=== PATIENT | female | born 1955 | race Caucasian/White ===

== ENCOUNTER → 2017-01-23 | Outpatient (CLI) | payer MEDICAID ==
[~2017-01-23] VITALS: Ht 328.9 cm; Wt 90.0 kg
[~2017-01-23] MED LIST: ATIVAN 1MG T1 MG/TAB PO; COMBIVENT INH14.7 GM IH; DESYREL 50MG50 MG PO; FLEXERIL5 MG PO; LEVAQUIN 5500 MG/TA1 PO; LEVAQUIN 750MG750 M1 PO; LEVOXYL0.025 MG PO; NO HOME MEDICATIONS; NORCO 325 MG-51 TAB PO; PAXIL CR 12.512.5 MG PO; PRAVACHOL10 MG PO; PREDNISONE20 MG PO; PROVENTIL0.09 MG/A1; QBRELIS1 MG/1 ML PO; QVAR0.04 MG/AC IH; RT ADVAIR 528 DISKUS IH; RYBIX ODT50 MG PO; SEROQUEL 2525 MG/TAB PO; ULTRAM 50MG TAB50 MG; VIIBRYD10 MG PO; VIVLODEX5 MG PO; XANAX 0.5MG0.5 MG
[2017-01-23 11:20] VITALS: BP 131/82; PULSE 105
[2017-01-23 12:24] VITALS: BP 128/77; PULSE 106
[2017-01-23 12:26] VITALS: BP 167/86; PULSE 137
[2017-01-23 12:27] VITALS: BP 148/80; PULSE 122
== END ==
LOC: COL.CARD 10:28
DX: Z01.810 Encounter for preprocedural cardiovascular examination (principal)
CPT/HCPCS: A9502; J2785

== ENCOUNTER 2017-09-09 12:00 | Outpatient (RCR) | payer MEDICAID ==
[2017-06-17 12:43] VITALS: BP 165/83; PULSE 88; TEMP 97.8
[2017-06-17 13:00] VITALS: BP 110/73; PULSE 88; TEMP 98.3
[2017-06-19 12:55] LABS: HEMATOCRIT 42.5 % (37.0-47.0); HEMOGLOBIN 14.2 g/dl (12.5-16.0); MEAN CELL VOLUME 100 fl (80.0-100.0); MEAN CORPUSCULAR HEMOGLOBIN 34 pg (27.0-31.0); MEAN CORPUSCULAR HGB CONC 33 g/dl (33.0-37.0); MEAN PLATELET VOLUME 9.6 fl (7.4-10.4); PLATELET COUNT 253 K/mm3 (130-400); RED BLOOD COUNT 4.24 M/mm3 (4.10-5.30); REDCELL DISTRIBUTION WIDTH-CV 14.8 % (11.5-14.5)
[2017-06-19 13:00] VITALS: BP 85/50; PULSE 80; TEMP 98.1
[2017-06-19 14:23] LABS: ANISOCYTOSIS 1+; BAND 7 % (0-10); EOSINOPHIL 7 % (0-4); LYMPHOCYTE 31 % (20.0-51.0); NEUTROPHILS 54 % (42.0-75.2); PLATELET ESTIMATE NORMAL (NORMAL)
[2017-06-23 12:45] VITALS: BP 98/61; PULSE 92; TEMP 98.3
[2017-06-27 12:18] LABS: HEMATOCRIT 39.9 % (37.0-47.0); HEMOGLOBIN 13.5 g/dl (12.5-16.0); MEAN CELL VOLUME 100 fl (80.0-100.0); MEAN CORPUSCULAR HEMOGLOBIN 34 pg (27.0-31.0); MEAN CORPUSCULAR HGB CONC 34 g/dl (33.0-37.0); MEAN PLATELET VOLUME 9.2 fl (7.4-10.4); PLATELET COUNT 173 K/mm3 (130-400); RED BLOOD COUNT 4.01 M/mm3 (4.10-5.30); REDCELL DISTRIBUTION WIDTH-CV 15.3 % (11.5-14.5)
[2017-06-27 12:30] LABS: ALBUMIN 3.3 gm/dL (3.5-5.0); BILIRUBIN,TOTAL 0.4 mg/dL (0.0-1.0); CALCIUM 8.8 mg/dL (8.4-10.2); CREATININE, serum 0.51 mg/dL (0.52-1.25); POTASSIUM 4.6 mmol/L (3.4-5.0); TOTAL PROTEIN 6.3 gm/dL (6.4-8.2)
[2017-06-27 12:33] VITALS: BP 105/65; PULSE 88; TEMP 98.3
[2017-06-27 12:51] LABS: BAND 4 % (0-10); EOSINOPHIL 3 % (0-4); LYMPHOCYTE 34 % (20.0-51.0); NEUTROPHILS 56 % (42.0-75.2)
[2017-06-27 12:53] LABS: PLATELET ESTIMATE NORMAL (NORMAL)
[2017-07-04 12:17] LABS: HEMATOCRIT 37.2 % (37.0-47.0); HEMOGLOBIN 12.7 g/dl (12.5-16.0); MEAN CELL VOLUME 100 fl (80.0-100.0); MEAN CORPUSCULAR HEMOGLOBIN 34 pg (27.0-31.0); MEAN CORPUSCULAR HGB CONC 34 g/dl (33.0-37.0); MEAN PLATELET VOLUME 9.3 fl (7.4-10.4); PLATELET COUNT 237 K/mm3 (130-400); RED BLOOD COUNT 3.72 M/mm3 (4.10-5.30); REDCELL DISTRIBUTION WIDTH-CV 15.8 % (11.5-14.5)
[2017-07-04 12:20] VITALS: BP 99/59; PULSE 83; TEMP 98.2
[2017-07-04 13:09] LABS: BAND 26 % (0-10); BASOPHIL 2 % (0-2); EOSINOPHIL 2 % (0-4); LYMPHOCYTE 20 % (20.0-51.0); NEUTROPHILS 46 % (42.0-75.2)
[2017-07-04 13:11] LABS: PLATELET ESTIMATE NORMAL (NORMAL)
[2017-07-18 11:56] VITALS: BP 178/90; PULSE 110; TEMP 98
[2017-07-18 11:59] LABS: HEMATOCRIT 39.6 % (37.0-47.0); HEMOGLOBIN 13.2 g/dl (12.5-16.0); MEAN CELL VOLUME 101 fl (80.0-100.0); MEAN CORPUSCULAR HEMOGLOBIN 34 pg (27.0-31.0); MEAN CORPUSCULAR HGB CONC 33 g/dl (33.0-37.0); PLATELET COUNT 219 K/mm3 (130-400); RED BLOOD COUNT 3.93 M/mm3 (4.10-5.30)
[2017-07-18 12:07] LABS: ALBUMIN 3.5 gm/dL (3.5-5.0); BILIRUBIN,TOTAL 0.6 mg/dL (0.0-1.0); CALCIUM 8.6 mg/dL (8.4-10.2); CREATININE, serum 0.49 mg/dL (0.52-1.25); POTASSIUM 4.3 mmol/L (3.4-5.0); TOTAL PROTEIN 6.6 gm/dL (6.4-8.2)
[2017-07-18 12:40] LABS: BAND 13 % (0-10); BASOPHIL 1 % (0-2); EOSINOPHIL 1 % (0-4); LYMPHOCYTE 13 % (20.0-51.0); NEUTROPHILS 68 % (42.0-75.2); PLATELET ESTIMATE NORMAL (NORMAL)
[2017-07-25 12:07] VITALS: BP 112/68; PULSE 92; TEMP 98.3
[2017-08-01 12:00] VITALS: BP 110/65; PULSE 101; TEMP 98
[2017-08-01 12:24] LABS: HEMATOCRIT 37.8 % (37.0-47.0); HEMOGLOBIN 12.8 g/dl (12.5-16.0); MEAN CELL VOLUME 102 fl (80.0-100.0); MEAN CORPUSCULAR HEMOGLOBIN 34 pg (27.0-31.0); MEAN CORPUSCULAR HGB CONC 34 g/dl (33.0-37.0); MEAN PLATELET VOLUME 9.2 fl (7.4-10.4); PLATELET COUNT 230 K/mm3 (130-400); RED BLOOD COUNT 3.72 M/mm3 (4.10-5.30); REDCELL DISTRIBUTION WIDTH-CV 16.5 % (11.5-14.5)
[2017-08-01 12:35] LABS: BILIRUBIN,TOTAL 0.4 mg/dL (0.0-1.0); CALCIUM 8.3 mg/dL (8.4-10.2); CREATININE, serum 0.46 mg/dL (0.52-1.25); POTASSIUM 4.8 mmol/L (3.4-5.0); TOTAL PROTEIN 6.1 gm/dL (6.4-8.2)
[2017-08-01 13:23] LABS: ANISOCYTOSIS 2+; BAND 9 % (0-10); LYMPHOCYTE 13 % (20.0-51.0); NEUTROPHILS 78 % (42.0-75.2); OVALOCYTES 1+; PLATELET ESTIMATE NORMAL (NORMAL)
[2017-08-08 12:08] VITALS: BP 108/60; PULSE 81; TEMP 97
[2017-08-08 12:15] LABS: HEMATOCRIT 37.7 % (37.0-47.0); HEMOGLOBIN 12.7 g/dl (12.5-16.0); MEAN CELL VOLUME 102 fl (80.0-100.0); MEAN CORPUSCULAR HEMOGLOBIN 34 pg (27.0-31.0); MEAN CORPUSCULAR HGB CONC 34 g/dl (33.0-37.0); MEAN PLATELET VOLUME 9.2 fl (7.4-10.4); PLATELET COUNT 269 K/mm3 (130-400); REDCELL DISTRIBUTION WIDTH-CV 16.6 % (11.5-14.5)
[2017-08-08 12:46] LABS: ANISOCYTOSIS 1+; BAND 10 % (0-10); EOSINOPHIL 6 % (0-4); LYMPHOCYTE 14 % (20.0-51.0); NEUTROPHILS 53 % (42.0-75.2); PLATELET ESTIMATE NORMAL (NORMAL)
[2017-08-15 12:12] LABS: HEMOGLOBIN 12.4 g/dl (12.5-16.0); MEAN CELL VOLUME 103 fl (80.0-100.0); MEAN CORPUSCULAR HEMOGLOBIN 35 pg (27.0-31.0); MEAN CORPUSCULAR HGB CONC 34 g/dl (33.0-37.0); MEAN PLATELET VOLUME 9.1 fl (7.4-10.4); PLATELET COUNT 241 K/mm3 (130-400); RED BLOOD COUNT 3.55 M/mm3 (4.10-5.30); REDCELL DISTRIBUTION WIDTH-CV 16.3 % (11.5-14.5)
[2017-08-15 12:14] LABS: HEMATOCRIT 36.5 % (37.0-47.0)
[2017-08-15 12:35] VITALS: BP 109/64; PULSE 87; TEMP 98.1
[2017-08-15 12:49] LABS: BAND 3 % (0-10); EOSINOPHIL 2 % (0-4); LYMPHOCYTE 29 % (20.0-51.0); METAMYELOCYTE 1 % (0-0); NEUTROPHILS 57 % (42.0-75.2)
[2017-08-15 12:51] LABS: ANISOCYTOSIS 1+; HYPOCHROMIA 2+
[2017-08-15 12:52] LABS: PLATELET ESTIMATE NORMAL (NORMAL)
[2017-08-22 12:35] VITALS: BP 105/74; PULSE 101; TEMP 98.2
[2017-08-22 12:37] LABS: HEMATOCRIT 38.7 % (37.0-47.0); MEAN CELL VOLUME 103 fl (80.0-100.0); MEAN CORPUSCULAR HEMOGLOBIN 35 pg (27.0-31.0); MEAN CORPUSCULAR HGB CONC 34 g/dl (33.0-37.0); PLATELET COUNT 278 K/mm3 (130-400); RED BLOOD COUNT 3.76 M/mm3 (4.10-5.30); REDCELL DISTRIBUTION WIDTH-CV 16.8 % (11.5-14.5)
[2017-08-22 12:46] LABS: BAND 9 % (0-10); EOSINOPHIL 4 % (0-4); LYMPHOCYTE 16 % (20.0-51.0); NEUTROPHILS 61 % (42.0-75.2); PLATELET ESTIMATE NORMAL (NORMAL)
[2017-08-22 12:54] LABS: ALBUMIN 3.4 gm/dL (3.5-5.0); BILIRUBIN,TOTAL 0.6 mg/dL (0.0-1.0); CALCIUM 8.9 mg/dL (8.4-10.2); CREATININE, serum 0.5 mg/dL (0.52-1.25); POTASSIUM 4.9 mmol/L (3.4-5.0)
[2017-09-02 12:00] VITALS: BP 118/68; PULSE 68; TEMP 97.8
[2017-09-02 12:24] LABS: HEMATOCRIT 39.6 % (37.0-47.0); HEMOGLOBIN 13.2 g/dl (12.5-16.0); MEAN CELL VOLUME 104 fl (80.0-100.0); MEAN CORPUSCULAR HEMOGLOBIN 35 pg (27.0-31.0); MEAN CORPUSCULAR HGB CONC 33 g/dl (33.0-37.0); MEAN PLATELET VOLUME 9.3 fl (7.4-10.4); PLATELET COUNT 251 K/mm3 (130-400); RED BLOOD COUNT 3.82 M/mm3 (4.10-5.30); REDCELL DISTRIBUTION WIDTH-CV 15.9 % (11.5-14.5)
[2017-09-02 12:42] LABS: BAND 1 % (0-10); BASOPHIL 1 % (0-2); EOSINOPHIL 10 % (0-4); LYMPHOCYTE 24 % (20.0-51.0); NEUTROPHILS 61 % (42.0-75.2); PLATELET ESTIMATE NORMAL (NORMAL)
[~2017-09-09] VITALS: Ht 177.8 cm; Wt 74.9 kg
[~2017-09-09 12:00] MED LIST changes: +OXYCONTIN 20MG20 MG PO; +ROXICODONE 55 MG/TAB PO
[2017-09-09 12:10] VITALS: BP 111/65; PULSE 92; TEMP 97.9
[2017-09-09 12:29] LABS: HEMATOCRIT 38.7 % (37.0-47.0); HEMOGLOBIN 12.7 g/dl (12.5-16.0); MEAN CELL VOLUME 105 fl (80.0-100.0); MEAN CORPUSCULAR HEMOGLOBIN 34 pg (27.0-31.0); MEAN CORPUSCULAR HGB CONC 33 g/dl (33.0-37.0); MEAN PLATELET VOLUME 9.4 fl (7.4-10.4); PLATELET COUNT 290 K/mm3 (130-400); REDCELL DISTRIBUTION WIDTH-CV 15.2 % (11.5-14.5)
[2017-09-09 12:37] LABS: ALBUMIN 3.4 gm/dL (3.5-5.0); BILIRUBIN,TOTAL 0.4 mg/dL (0.0-1.0); CALCIUM 8.8 mg/dL (8.4-10.2); CREATININE, serum 0.48 mg/dL (0.52-1.25); POTASSIUM 4.6 mmol/L (3.4-5.0); TOTAL PROTEIN 7.2 gm/dL (6.4-8.2)
[2017-09-09 12:42] LABS: BAND 2 % (0-10); EOSINOPHIL 7 % (0-4); LYMPHOCYTE 12 % (20.0-51.0); NEUTROPHILS 67 % (42.0-75.2)
[2017-09-09 12:43] LABS: ANISOCYTOSIS 1+; PLATELET ESTIMATE NORMAL (NORMAL)
== END 2017-09-09 12:21 | disposition home or self-care (01) ==
LOC: EUO 12:00
PROVIDERS: Internal Medicine Medical Oncology; Radiology Radiation Oncology
DX: C20 Malignant neoplasm of rectum (principal); I10 Essential (primary) hypertension; J44.9 Chronic obstructive pulmonary disease, unspecified
CPT/HCPCS: C1751; J1644

== ENCOUNTER 2017-09-15 11:54 | Outpatient (RCR) | payer MEDICAID ==
[~2017-09-15] VITALS: Ht 177.8 cm; Wt 72.0 kg
[2017-09-15 11:57] VITALS: BP 113/50; PULSE 103; TEMP 98.1
[2017-09-15 12:18] LABS: HEMATOCRIT 38.9 % (37.0-47.0); HEMOGLOBIN 13.1 g/dl (12.5-16.0); MEAN CELL VOLUME 103 fl (80.0-100.0); MEAN CORPUSCULAR HEMOGLOBIN 35 pg (27.0-31.0); MEAN CORPUSCULAR HGB CONC 34 g/dl (33.0-37.0); MEAN PLATELET VOLUME 9.2 fl (7.4-10.4); PLATELET COUNT 282 K/mm3 (130-400); RED BLOOD COUNT 3.77 M/mm3 (4.10-5.30); REDCELL DISTRIBUTION WIDTH-CV 14.5 % (11.5-14.5)
[2017-09-15 12:51] LABS: ANISOCYTOSIS 2+; BAND 3 % (0-10); EOSINOPHIL 15 % (0-4); LYMPHOCYTE 18 % (20.0-51.0); MICROCYTOSIS 1+; NEUTROPHILS 61 % (42.0-75.2); PLATELET ESTIMATE NORMAL (NORMAL)
[2017-09-23 10:00] VITALS: BP 120/55; PULSE 92; TEMP 98
[2017-09-23 12:13] LABS: HEMOGLOBIN 14.2 g/dl (12.5-16.0); MEAN CELL VOLUME 99 fl (80.0-100.0); MEAN CORPUSCULAR HEMOGLOBIN 34 pg (27.0-31.0); MEAN CORPUSCULAR HGB CONC 35 g/dl (33.0-37.0); MEAN PLATELET VOLUME 9.2 fl (7.4-10.4); PLATELET COUNT 291 K/mm3 (130-400); RED BLOOD COUNT 4.13 M/mm3 (4.10-5.30); REDCELL DISTRIBUTION WIDTH-CV 13.4 % (11.5-14.5)
[2017-09-23 12:53] LABS: ANISOCYTOSIS 1+; BAND 2 % (0-10); EOSINOPHIL 6 % (0-4); LYMPHOCYTE 26 % (20.0-51.0); NEUTROPHILS 59 % (42.0-75.2); PLATELET ESTIMATE NORMAL (NORMAL)
== END 2017-09-23 10:00 | disposition home or self-care (01) ==
LOC: EUO 11:54
PROVIDERS: Internal Medicine Medical Oncology
DX: Z45.2 Encounter for adjustment and management of vascular access device (principal)
CPT/HCPCS: J1644

== ENCOUNTER 2021-11-23 10:05 | Day surgery (SDC) | payer MEDICARE, MEDICAID ==
[~2021-11-23] VITALS: Ht 172.7 cm; Wt 59.1 kg
[2021-11-23] MEDS ORDERED: DESYREL DIVIDO150 M1 PO (11:15)
[2021-11-23] MEDS ORDERED: PRINIVIL10 MG PO (11:23)
[2021-11-23] MEDS ORDERED: KEPPRA750 MG PO (11:23)
[2021-11-23] MEDS ORDERED: PAXIL40 MG PO (11:24)
[2021-11-23] MEDS ORDERED: NEURONTIN100 MG/CAP PO (11:24)
[2021-11-23 11:26] VITALS: BP 109/53; PULSE 82; TEMP 97.9
[2021-11-23 12:24] VITALS: BP 115/62; PULSE 87
--- NOTE | 2021-11-23 12:24 | NUR ---
Patient returns to room 5 per cart from surgery accompanied by Balbir URBINA and is awake and alert. Dressing clean and dry on the left chest port a catheter site. IV fluids infusing and site is free of redness or swelling. Siderails up x2 and call light in reach.
[2021-11-23 12:39] VITALS: BP 104/76; PULSE 84
--- NOTE | 2021-11-23 12:39 | NUR ---
Drinking black coffee, eating applesauce, and water. Cursing at spouse and becoming agitated with him. Spouse walked out of room. Tolerates snack.
--- NOTE | 2021-11-23 12:50 | NUR ---
IV discontinued and site is free of redness or swelling. States that she is going to the cafeteria to eat. Remains agitated.
--- NOTE | 2021-11-23 12:55 | NUR ---
Patient dismissal instructions given and voices understanding. Spouse returns to room. Patient assisted into wheelchair. Spouse remains in the room.
--- NOTE | 2021-11-23 13:01 | NUR ---
Taken to the cafeteria by spouse per and he pushed patient in wheelchair. Escorted by Pippa URBINA. Patient and spouse will call public transportation when ready to be discharged back to [facility].
== END 2021-11-23 13:01 | disposition home or self-care (01) ==
LOC: SDCO 10:05
DX: C20 Malignant neoplasm of rectum (principal); J44.9 Chronic obstructive pulmonary disease, unspecified; F17.210 Nicotine dependence, cigarettes, uncomplicated; Z79.899 Other long term (current) drug therapy
CPT/HCPCS: C1788; J0690; J1644; J2704; J7120

== ENCOUNTER 2022-01-03 09:58 | Emergency (ER) | payer MEDICARE, MEDICAID ==
[~2022-01-03 09:58] MED LIST changes: +DESYREL DIVIDO150 M1 PO; +KEPPRA750 MG PO; +NEURONTIN100 MG/CAP PO; +PAXIL40 MG PO; +PRINIVIL10 MG PO
[2022-01-03 10:03] VITALS: BP 242/109
[2022-01-03 10:16] VITALS: PULSE 0
[2022-01-03] MEDS ORDERED: ATIVAN 0.50.5 MG/TAB PO (12:07)
[2022-01-03] MEDS ORDERED: DECADRON 4MG TAB4 MG PO (12:07)
[2022-01-03] MEDS ORDERED: NEURONTIN300 MG/CAP PO (12:09)
[2022-01-03] MEDS ORDERED: ZOVIRAX 200MG200 MG PO (12:09)
[2022-01-03] MEDS ORDERED: PRIL40 PO (12:10)
[2022-01-03] MEDS ORDERED: VIIBRYD20 MG PO (12:11)
[2022-01-03] MEDS ORDERED: ROXICODONE 55 MG/TAB PO (12:12)
[2022-01-03] MEDS ORDERED: TIROSINT25 MC1 PO (12:13)
[2022-01-03] MEDS ORDERED: ZOFRAN8 MG PO (12:14)
[2022-01-03] MEDS ORDERED: KEPPRA750 MG PO (12:58)
--- NOTE | 2022-01-03 12:59 | NUR ---
Director Safety responded to ED for code blue for patient brought in via EMS from the [facility] by [facility] here in [place]. Per EMR, patient's address is in [place], however she and her life partner, Loi had stayed overnight at the hotel as she had chemotherapy yesterday at the [facility] here in [place]. SW was told by EMS that they were unsure if patient's partner was in route. SW contacted Loi and stated that she was calling about patient, Beverley Maddox. Loi confirmed he was the life partner and that he was packing up his belongings at the hotel and would be to the ED in a couple hours. WALESKA advised there had been a change in patient's status and we needed him here as soon as possible. Loi said he did not have a ride as [employer] can't pick him up until later. WALESKA advised she would schedule an Uber for patient and call back with a product picker time. Loi advised he needed at least half an hour to pack up his belongings. WALESKA advised Loi that the situation was emergent and we needed him to arrive sooner than that. Loi verbalized understanding. WALESKA scheduled an Uber then contacted Loi with product picker time. WALESKA also advised Loi that Master Control Supervisor contacted the hotel and explained to management that patient will require a later check out as he is needed in the ED for an emergency. Loi arrived and WALESKA and [employer] Service Helper escorted him to the family waiting room where the ED Physician provided Loi the update that patient had passed. Loi was tearful and stated he figured after he was contacted to get here quickly. Loi stated he and patient are not however they live together and have been together for twenty years. Loi advised that patient's parents are and that both of her children by suicide. Loi reported that patient has two living sisters, one of which is in a halfway for "alcohol dementia". Patient's other sister, Nova Becerra (ph#[phone]) lives in [place]. Loi attempted to contact Nova and left her a message. WALESKA also attempted to call her and left a message. Loi stated that patient wanted to be cremated and he would like to use the least expensive option as he does not have much money. WALESKA advised that [facility] was the least expensive option and Loi was agreeable to this. WALESKA updated Master Control Supervisor. Loi took patient's jewlery that she was wearing and stated he was going to make sure this got to her grandchildren. Loi advised he has a friend meeting him at the hotel to provide support and a ride back to [place]. Before leaving, Loi advised he got a hold of Nova and told her the news. WALESKA arranged an uber for Loi to get back to the hotel. WALESKA received a message from Nova, so WALESKA attempted to contact Nova back and left her another message. No call back has been received at this time.
[2022-01-03] MEDS ORDERED: XANAX 0.5MG0.5 MG PO (13:01)
[2022-01-03] MEDS ORDERED: SODIUM CHLORIDE1 GM PO (13:03)
[2022-01-03] MEDS ORDERED: PAXIL 20MG20 MG PO (13:03)
[2022-01-03] MEDS ORDERED: FLEXERIL 1010 MG/TAB PO (13:05)
[2022-01-03] MEDS ORDERED: RT ADVAIR 228 DISKUS IH (13:06)
--- NOTE | 2022-01-03 13:10 | NUR ---
Initial encounter; Emergency Services called with a message of [facility]. Insurance Processing Clerk went to where Beverley was being worked with. When her 'Life Partner' Loi arrived Insurance Processing Clerk attempted to help him when the Physician explained that Beverley had . Patient and Insurance Processing Clerk eventually went in to view patient's body; Insurance Processing Clerk offered the [employer] [facility] and when Loi was ready to go stayed with him throughout the process of giving information and finally assisted him into the Uber that Assessment Manager had called for him. He thanked Insurance Processing Clerk and Assessment Manager for all their help. We offered our condolences.
== END 2022-01-03 22:30 | disposition expired ==
LOC: COL.ER 09:58
DX: I46.9 Cardiac arrest, cause unspecified (principal)
CPT/HCPCS: J0171